=== PATIENT | female | born 1990 | race American Indian/Alaskan Native ===

== ENCOUNTER 2019-06-05 18:19 | Emergency (ER) | payer OTHER ==
[2019-06-05] MEDS ORDERED: DECADRON IM ONE (18:24)
[2019-06-05] MEDS ORDERED: PROVENTIL IH ONE (18:24)
[2019-06-05] MEDS ORDERED: ATROVENT IH ONE (18:24)
[2019-06-05 18:26] VITALS: BP 167/86
--- NOTE | 2019-06-05 18:26 | Emergency Department Report ---
Blank Doc - Documentation Documentation: 28-year-old female that presents with asthma exacerbation. This initial assessment/diagnostic orders/clinical plan/treatment(s) is/are subject to change based on patient's health status, clinical progression and re- assessment by fellow clinical providers in the ED. Further treatment and workup at subsequent clinical providers discretion. Patient/guardians urged not to elope from the ED as their condition may be serious if not clinically assessed and managed. Initial orders include: 1- Patient sent to [facility] for further evaluation and treatment 2- breathing treatment/steroids
--- NOTE | 2019-06-05 20:14 | XRay Report ---
CHEST 2 VIEWS INDICATION: dyspnea, cough. COMPARISON: None FINDINGS: Support devices: None. Heart: Within normal limits. Lungs/pleura: There is mild central peribronchial thickening and trace fluid along the minor fissure on the right. No pneumothorax. Additional findings: None. IMPRESSION: 1. Probable minimal interstitial edema. No pleural effusion or consolidation. Signer Name: Biju Jean MD Signed: 06/05/2019 8:10 PM Workstation Name: [id number]
[2019-06-05] MEDS ORDERED: LEVAQUIN PO ONE (20:44)
--- NOTE | 2019-06-05 20:50 | Emergency Department Report ---
- General Chief Complaint: Adult Asthma Stated Complaint: ASTHMA ATTACK Time Seen by Provider: 06/05/19 18:24 Source: patient Mode of arrival: Ambulatory Limitations: No Limitations - History of Present Illness Initial Comments: Patient is a 28-year-old female with a history of asthma with occasional exacerbations who presents to the ED with complaint of acute onset of persistent shortness of breath, nasal and sinus congestion, dry cough with wheezing and frontal sinus pressure for the last 2 days. Patient states that her symptoms got worse 24 hours ago despite using her home based albuterol neb nebulizer. Patient denies fever, chills, nausea, vomiting, chest pain, abdominal pain, sore throat, headache, dizziness or change in vision and syncope MD Complaint: cough, rhinorrhea, nasal congestion, sinus pain, other (dyspnea) -: Sudden, days(s) (2) Severity: moderate Severity scale (0 -10): 4 Quality: aching Consistency: constant Improves With: nothing Worsens With: nothing Context: other (chronic asthma) Associated Symptoms: denies other symptoms, rhinorrhea, nasal congestion, cough, shortness of breath. denies: fever, chills, myalgias, diaphoresis, headache, sore throat, stiff neck, chest pain, abdominal pain, nausea, vomiting, diarrhea, dysuria, rash, confusion, right sweats, weight loss, epistaxis, hoarseness, ear pain Treatments Prior to Arrival: none - Related Data Previous Rx's Medication Instructions Recorded Last Taken Type Benzonatate [Tessalon Perles] 100 mg PO Q8HR #30 capsule 06/05/19 Unknown Rx levoFLOXacin [Levaquin] 750 mg PO QDAY #7 tablet 06/05/19 Unknown Rx methylPREDNISolone [Medrol 4MG 4 mg PO DAILY #21 tab.ds.pk 06/05/19 Unknown Rx DOSEPAK (21 tabs)] Allergies Allergy/AdvReac Type Severity Reaction Status Date / Time No Known Allergies Allergy Unverified 06/05/19 18:26 ED Review of Systems ROS: Stated complaint: ASTHMA ATTACK Other details as noted in HPI Constitutional: denies: chills, fever Eyes: denies: eye pain, eye discharge, vision change ENT: congestion. denies: ear pain, throat pain Respiratory: cough, shortness of breath, wheezing Cardiovascular: denies: chest pain, palpitations Endocrine: no symptoms reported Gastrointestinal: denies: abdominal pain, nausea, diarrhea Genitourinary: denies: urgency, dysuria, discharge Musculoskeletal: denies: back pain, joint swelling, arthralgia Skin: denies: rash, lesions Neurological: denies: headache, weakness, paresthesias Psychiatric: denies: anxiety, depression Hematological/Lymphatic: denies: easy bleeding, easy bruising ED Past Medical Hx - Past Medical History Previous Medical History?: Yes Hx Asthma: Yes - Surgical History Past Surgical History?: No - Social History Smoking Status: Current Some Day Smoker Substance Use Type: Alcohol - Medications Home Medications: Home Medications Medication Instructions Recorded Confirmed Last Taken Type Benzonatate [Tessalon Perles] 100 mg PO Q8HR #30 capsule 06/05/19 Unknown Rx levoFLOXacin [Levaquin] 750 mg PO QDAY #7 tablet 06/05/19 Unknown Rx methylPREDNISolone [Medrol 4MG 4 mg PO DAILY #21 tab.ds.pk 06/05/19 Unknown Rx DOSEPAK (21 tabs)] ED Physical Exam - General Limitations: No Limitations General appearance: alert, in no apparent distress - Head Head exam: Present: atraumatic, normocephalic, normal inspection - Eye Eye exam: Present: normal appearance, PERRL, EOMI Pupils: Present: normal accommodation - ENT ENT exam: Present: normal orophraynx, mucous membranes moist, TM's normal bilaterally, normal external ear exam, other (grossly congested nasal passages) - Neck Neck exam: Present: normal inspection, full ROM. Absent: tenderness, meningismus, lymphadenopathy, thyromegaly - Respiratory Respiratory exam: Present: normal lung sounds bilaterally, wheezes (diffuse coarse wheezes throughout). Absent: respiratory distress, chest wall tenderness, accessory muscle use, decreased breath sounds, prolonged expiratory - Cardiovascular Cardiovascular Exam: Present: normal rhythm, tachycardia, normal heart sounds. Absent: systolic murmur, diastolic murmur, rubs, gallop - GI/Abdominal GI/Abdominal exam: Present: soft, normal bowel sounds. Absent: tenderness, guarding, hyperactive bowel sounds, hypoactive bowel sounds, organomegaly - Extremities Exam Extremities exam: Present: normal inspection, full ROM, normal capillary refill - Back Exam Back exam: Present: normal inspection, full ROM. Absent: tenderness, CVA tenderness (L), muscle spasm, paraspinal tenderness - Neurological Exam Neurological exam: Present: alert, oriented X3, CN II-XII intact, normal gait, reflexes normal - Psychiatric Psychiatric exam: Present: normal affect, normal mood - Skin Skin exam: Present: warm, dry, intact, normal color. Absent: rash ED Course Vital Signs 06/05/19 06/05/19 18:24 19:14 Temperature 99.3 F Pulse Rate 113 H Pulse Rate [ 115 H Posterior Bilateral] Respiratory 22 Rate Respiratory 22 Rate [Posterior Bilateral] Blood Pressure 167/86 O2 Sat by Pulse 100 Oximetry - Reevaluation(s) Reevaluation #1: 06/05/19 20:54 This is a 28-year-old female with a history of asthma who presented to the ED with shortness of breath, dry cough and wheezing for 2 days. In the ED, patient is alert and oriented 3 and is not in distress, tachycardic in triage. In the ED patient received DuoNeb treatment as well as albuterol nebulizer treatment and Decadron 10 mg intramuscular injection. Chest x-ray shows probable minimal interstitial edema but otherwise no pleural effusion or consolidation. On reevaluation, patient's wheezing has resolved and the patient oxygen saturation is 100% in room air. Patient was discharged home on medications and advised to follow-up with her primary care physician in 5-7 days for reevaluation or return to the ED immediately if symptoms get worse. ED Medical Decision Making - Radiology Data Radiology results: report reviewed, image reviewed Findings [facility] [address] [place] [address] XRay Report Signed Patient: DALE MALLOY MR#: [id number] 77 : 1990 Acct:[id number] Age/Sex: 28 / F ADM Date: 06/05/19 Loc: ED Attending Dr: Ordering Physician: ROLF GALLARDO Date of Service: 06/05/19 Procedure(s): XR chest routine 2V Accession Number(s): [id number] cc: ROLF GALLARDO Fluoro Time In Minutes: CHEST 2 VIEWS INDICATION: dyspnea, cough. COMPARISON: None FINDINGS: Support devices: None. Heart: Within normal limits. Lungs/pleura: There is mild central peribronchial thickening and trace fluid along the minor fissure on the right. No pneumothorax. Additional findings: None. IMPRESSION: 1. Probable minimal interstitial edema. No pleural effusion or consolidation. Signer Name: Biju Jean MD Signed: 06/05/2019 8:10 PM Workstation Name: [id number] Transcribed By: AISHA Dictated By: Biju Jean MD Electronically Authenticated By: Biju Jean MD Signed Date/Time: 06/05/192009 - Medical Decision Making This is a 28-year-old female with a history of asthma who presented to the ED with shortness of breath, dry cough and wheezing for 2 days. In the ED, patient is alert and oriented 3 and is not in distress, tachycardic in triage. In the ED patient received DuoNeb treatment as well as albuterol nebulizer treatment and Decadron 10 mg intramuscular injection. Chest x-ray shows probable minimal interstitial edema but otherwise no pleural effusion or consolidation. On reevaluation, patient's wheezing has resolved and the patient oxygen saturation is 100% in room air. Patient was discharged home on medications and advised to follow-up with her primary care physician in 5-7 days for reevaluation or return to the ED immediately if symptoms get worse. - Differential Diagnosis dyspnea, asthma; bronchitis, acute URI Critical care attestation.: If time is entered above; I have spent that time in minutes in the direct care of this critically ill patient, excluding procedure time. ED Disposition Clinical Impression: Acute asthmatic bronchitis, Acute upper respiratory infection, Shortness of breath Disposition: DC-01 TO HOME OR SELFCARE Is pt being admited?: No Does the pt Need Aspirin: No Condition: Stable Instructions: Acute Bronchitis (ED), Asthma (ED), Dyspnea (ED), Upper Respiratory Infection (ED) Additional Instructions: Take medications with food, drink plenty of fluids and follow-up with your primary care physician in 7-10 days for reevaluation. Return to the ED immediately if symptoms get worse. Prescriptions: levoFLOXacin [Levaquin] 750 mg PO QDAY #7 tablet methylPREDNISolone [Medrol 4MG DOSEPAK (21 tabs)] 4 mg PO DAILY #21 tab.ds.pk Benzonatate [Tessalon Perles] 100 mg PO Q8HR #30 capsule Referrals: PRIMARY CARE, [Primary Care Provider] - 3-5 Days Time of Disposition: 20:46 Print Language: ANGUILLAN
== END 2019-06-05 21:11 | disposition home or self-care (01) ==
LOC: ED 18:19
DX: J45.909 Unspecified asthma, uncomplicated (principal); J06.9 Acute upper respiratory infection, unspecified
CPT/HCPCS: 71046; 94644; 96372; 99283; J1100; 94640